=== PATIENT | male | born 1945 | race Caucasian/White ===

== ENCOUNTER → 2018-01-09 | Outpatient (CLI) | payer BC | LOC: M.RAD 14:58 | DX: M47.896 Other spondylosis, lumbar region (principal); M16.11 Unilateral primary osteoarthritis, right hip; M25.551 Pain in right hip; G89.29 Other chronic pain ==

== ENCOUNTER → 2018-10-20 | Outpatient (CLI) | payer BC ==
[~2018-10-20] MED LIST: ASPIR 8181 MG PO; HYDROCHLOROTH12.5 M1 PO; HYDROCODONE-AP1 EAC6 PO; JANUVIA100 MG PO; LEVAQUIN 500 M500 M3 PO; LISINOPRIL20 MG PO; METFORMIN HCL500 MG PO; PHENAZOPYRIDIN200 M2 PO; TOPROL XL25 MG PO; ZOCOR40 MG PO
== END ==
LOC: M.CT 10-19 09:32
DX: N43.3 Hydrocele, unspecified (principal); K57.90 Diverticulosis of intestine, part unspecified, without perforation or abscess without bleeding; I25.10 Atherosclerotic heart disease of native coronary artery without angina pectoris; D71 Functional disorders of polymorphonuclear neutrophils; D17.79 Benign lipomatous neoplasm of other sites; K40.31 Unilateral inguinal hernia, with obstruction, without gangrene, recurrent; R10.32 Left lower quadrant pain; N50.89 Other specified disorders of the male genital organs; R39.198 Other difficulties with micturition

== ENCOUNTER 2018-10-21 06:59 | Emergency (ER) | payer BC ==
[~2018-10-21] VITALS: Ht 170.2 cm; Wt 72.6 kg
[2018-10-21] MEDS ORDERED: METFORMIN HCL500 MG PO (07:11)
[2018-10-21] MEDS ORDERED: HYDROCHLOROTH12.5 M1 PO (07:11)
[2018-10-21] MEDS ORDERED: LISINOPRIL20 MG PO (07:11)
[2018-10-21] MEDS ORDERED: ZOCOR40 MG PO (07:11)
[2018-10-21] MEDS ORDERED: TOPROL XL25 MG PO (07:11)
[2018-10-21] MEDS ORDERED: JANUVIA100 MG PO (07:11)
[2018-10-21] MEDS ORDERED: ASPIR 8181 MG PO (07:11)
[2018-10-21 07:41] LABS: URINE BILIRUBIN NEGATIVE (Negative); URINE BLOOD 2+ (Negative); URINE CLARITY CLOUDY; URINE COLOR YELLOW; URINE GLUCOSE-RANDOM NEGATIVE (Negative); URINE KETONES 1+ (Negative); URINE PROTEIN TRACE (Negative); URINE UROBILINOGEN 0.2 E.U./dl (0.2-1.0)
[2018-10-21] MEDS ORDERED: LEVAQUIN 500 M500 M3 PO (07:41)
[2018-10-21] MEDS ORDERED: HYDROCODONE-AP1 EAC6 PO (07:41)
[2018-10-21 07:52] LABS: HEMATOCRIT 34.1 % (42.0-52.0); HEMOGLOBIN 12.3 gm/dL (14.0-18.0); MCH 31.3 pg (26.0-34.0); MCHC 35.9 g/dL (28.0-37.0); MCV 87.3 fL (80.0-100.0); MPV 7.9 fl. (7.2-11.1); NUCLEATED RBCS 0 /100WBC; PLATELET COUNT* 290 thou/uL (150-400); RBC 3.91 mil/uL (4.50-6.00); RDW-CV 12.5 % (10.5-14.5); WBC 16.6 thou/uL (4.0-11.0)
[2018-10-21] MEDS ORDERED: PHENAZOPYRIDIN200 M2 PO (08:02)
[2018-10-21 08:07] LABS: CREATININE 1.3 mg/dL (0.6-1.3); POTASSIUM 3.8 mmol/L (3.5-5.1)
[2018-10-21 08:11] LABS: URINE LEUKOCYTES-REFLEX 3+ (Negative); URINE NITRITE-REFLEX POSITIVE (Negative)
[2018-10-21 08:11] LABS: ALBUMIN 2.7 g/dL (3.4-5.0); TOTAL BILIRUBIN 1.2 mg/dL (<0.1-1.0); TOTAL PROTEIN 7.1 g/dL (6.4-8.2)
[2018-10-21 08:29] LABS: SQUAMOUS 0-3 Few /LPF (0-3)
[2018-10-21 08:30] LABS: CASTS None Seen /LPF (None Seen); CRYSTALS None Seen /LPF (None Seen); URINE RBC 3-10 Few /HPF (0-2); URINE WBC-REFLEX >25 Many /HPF (0-5)
[2018-10-21 08:36] VITALS: BP 164/80
[2018-10-21 08:41] LABS: ABSOLUTE LYMPHOCYTES 0.8 thou/uL (0.8-5.3); ABSOLUTE MONOCYTES 0.8 thou/uL (0.0-1.2); ABSOLUTE NEUTROPHILS 14.9 thou/uL (1.6-8.1); PLATELET ESTIMATE ADEQUATE
== END 2018-10-21 08:37 | disposition home or self-care (01) ==
LOC: M.ERS 06:59
PROVIDERS: Emergency Medicine Emergency Medical Services
DX: N45.1 Epididymitis (principal); I10 Essential (primary) hypertension; E11.9 Type 2 diabetes mellitus without complications